=== PATIENT | male | born 2000 | race Caucasian/White ===

== ENCOUNTER 2023-01-19 13:31 | Emergency (ER) | payer BC ==
[~2023-01-19] VITALS: Ht 167.6 cm; Wt 72.6 kg
[2023-01-19 13:59] VITALS: BP 136/74; PULSE 93; RESP 18; TEMP 97; O2SAT 98
[2023-01-19] MEDS ORDERED: NACL 0.9% 1,000 ML IV ONE (14:25)
[2023-01-19] MEDS ORDERED: MORPHINE SULFATE 2 MG/ML SYR IVP STA (14:31)
[2023-01-19] MEDS ORDERED: LIDOCAINE MPF 1% 10 MG/ML VIAL INJ ONE (14:35)
[2023-01-19] MEDS ORDERED: ONDANSETRON 4 MG/2 ML VIAL IVP ONE (14:35)
[2023-01-19 15:00] LABS: BASOPHILS % (AUTO) 0.2 % (0.0-2.0); EOSINOPHILS # (AUTO) 0.1 K/uL (0-0.4); EOSINOPHILS % (AUTO) 0.8 % (0.0-4.0); HEMOGLOBIN 16.6 g/dL (12.0-18.0); MEAN CORPUSCULAR HEMOGLOBIN 29 pg (27-31); MEAN CORPUSCULAR HGB CONC 34 g/dL (33-37); MEAN CORPUSCULAR VOLUME 86.6 fL (80-94); MONOCYTES # (AUTO) 0.8 K/uL (0.8-1.0); MONOCYTES % (AUTO) 5.6 % (1.7-9.3); NEUTROPHILS # (AUTO) 12.7 K/uL (1.8-7.7); NEUTROPHILS % (AUTO) 86.4 % (42.2-75.2); PLATELET COUNT (AUTO) 222 K/uL (140-450); RED BLOOD CELL COUNT(AUTO) 5.66 MIL/uL (4.20-6.10); WHITE BLOOD COUNT (AUTO) 14.7 K/uL (4.5-11.0)
[2023-01-19 15:21] LABS: ALANINE AMINOTRANSFERASE 28 U/L (12-78); ALBUMIN 4.2 g/dL (3.4-5.0); ALKALINE PHOSPHATASE 83 U/L (50-136); ANION GAP 11.4 (8-16); ASPARTATE AMINOTRANSFERASE 23 U/L (15-37); CALCIUM 8.3 mg/dL (8.5-10.1); CARBON DIOXIDE 27.6 mmol/L (21-32); CHLORIDE 102 mmol/L (98-107); CREATININE 0.9 mg/dL (0.6-1.3); GFR ARICAN-AMERICAN 138 mL/min (>90); GFR NON ARICAN-AMERICAN 114 mL/min (>90); GLUCOSE 95 mg/dL (74-106); SODIUM SERUM 137 mmol/L (136-145); TOTAL BILIRUBIN 0.6 mg/dL (0.0-1.0); UREA NITROGEN, BLOOD 10 mg/dL (7-18)
[2023-01-19] MEDS ORDERED: LIDOCAINE MPF 1% 5 ML ONE (16:22)
[2023-01-19] MEDS ORDERED: AMOX1TAB8 PO (16:39)
[2023-01-19] MEDS ORDERED: BACTO TP (16:39)
[2023-01-19] MEDS ORDERED: ACET-10509 PO (16:39)
[2023-01-19] MEDS ORDERED: CHLO473S62 PO (16:39)
[2023-01-19 17:49] VITALS: BP 122/79; PULSE 68; RESP 16; TEMP 97.4; O2SAT 100
== END 2023-01-19 17:49 | disposition home or self-care (01) ==
LOC: MED 13:31
DX: S01.511A Laceration without foreign body of lip, initial encounter (principal); Z79.899 Other long term (current) drug therapy; W18.30XA Fall on same level, unspecified, initial encounter; Y93.89 Activity, other specified; Y92.89 Other specified places as the place of occurrence of the external cause; Y99.8 Other external cause status
CPT/HCPCS: 12011; 36415; 80053; 83735; 84484; 85025; 93005; 96361; 96374; 96375; 99284; J2001; J2270; J2405